=== PATIENT | male | born 1955 | race Caucasian/White ===

== ENCOUNTER 2023-08-29 08:54 | Outpatient (RCR) | payer MEDICARE, OTHER, SELFPAY | END 2023-08-29 23:59 | disposition home or self-care (01) | LOC: RPT 08:54 | PROVIDERS: ATTENDING PHYSICIAN Orthopaedic Surgery; FAMILY PHYSICIAN Family Medicine | DX: M17.12 Unilateral primary osteoarthritis, left knee (principal); Z73.6 Limitation of activities due to disability; R26.2 Difficulty in walking, not elsewhere classified; M25.562 Pain in left knee | CPT/HCPCS: 97110; 97162; 97530 ==

== ENCOUNTER 2023-09-24 10:52 | Outpatient (RCR) | payer MEDICARE, OTHER, SELFPAY | END 2023-09-24 23:59 | disposition home or self-care (01) | LOC: RPT 10:52 | PROVIDERS: ATTENDING PHYSICIAN Orthopaedic Surgery; FAMILY PHYSICIAN Family Medicine | DX: Z47.1 Aftercare following joint replacement surgery (principal); M17.12 Unilateral primary osteoarthritis, left knee; R26.2 Difficulty in walking, not elsewhere classified; M25.562 Pain in left knee; Z96.652 Presence of left artificial knee joint | CPT/HCPCS: 97110; 97140; 97530 ==

== ENCOUNTER 2023-10-24 13:08 | Outpatient (RCR) | payer MEDICARE, OTHER, SELFPAY | END 2023-10-24 23:59 | disposition home or self-care (01) | LOC: RPT 13:08 | PROVIDERS: ATTENDING PHYSICIAN Orthopaedic Surgery; FAMILY PHYSICIAN Family Medicine | DX: M17.12 Unilateral primary osteoarthritis, left knee (principal); M25.562 Pain in left knee; R26.2 Difficulty in walking, not elsewhere classified; Z73.6 Limitation of activities due to disability | CPT/HCPCS: 97018; 97110; 97112; 97140; 97166; 97530; 97535 ==

== ENCOUNTER 2023-11-15 13:14 | Outpatient (RCR) | payer MEDICARE, OTHER, SELFPAY | END 2023-11-15 23:59 | disposition home or self-care (01) | LOC: RPT 13:14 | PROVIDERS: ATTENDING PHYSICIAN Orthopaedic Surgery; FAMILY PHYSICIAN Family Medicine | DX: M17.12 Unilateral primary osteoarthritis, left knee (principal); M25.562 Pain in left knee; R26.2 Difficulty in walking, not elsewhere classified; Z73.6 Limitation of activities due to disability | CPT/HCPCS: 97018; 97110; 97112; 97140; 97530 ==

== ENCOUNTER → 2023-12-18 09:50 | Outpatient (REF) | payer MEDICARE, OTHER, SELFPAY | LOC: EMG 09:50 | PROVIDERS: ATTENDING PHYSICIAN Orthopaedic Surgery Hand Surgery; FAMILY PHYSICIAN Family Medicine | DX: R20.0 Anesthesia of skin (principal); M79.642 Pain in left hand | CPT/HCPCS: 95886; 95909 ==

== ENCOUNTER 2023-12-27 11:58 | Outpatient (RCR) | payer MEDICARE, OTHER, SELFPAY | END 2023-12-28 07:38 | disposition home or self-care (01) | LOC: RPT 11:58 | PROVIDERS: ATTENDING PHYSICIAN Orthopaedic Surgery; FAMILY PHYSICIAN Family Medicine | DX: M17.12 Unilateral primary osteoarthritis, left knee (principal); M25.562 Pain in left knee; R26.2 Difficulty in walking, not elsewhere classified; Z73.6 Limitation of activities due to disability; G56.01 Carpal tunnel syndrome, right upper limb; M65.331 Trigger finger, right middle finger | CPT/HCPCS: 97018; 97110; 97530 ==

== ENCOUNTER 2024-05-06 06:17 | Day surgery (SDC) | payer MEDICARE, OTHER, SELFPAY ==
[2024-05-06 15:05] VITALS: BMI 28.7
[2024-05-06 15:15] VITALS: BP 154/80; BMI 28.7
[2024-05-06] MEDS: TYLENOL 1000 MG PO (15:46)
[2024-05-06] MEDS: CELEBREX 200 MG PO (15:46)
[2024-05-06] MEDS: NORMOSOL-R/PLASMALYTE-A 1000 IV (15:47)
[2024-05-06 18:49] VITALS: BP 128/67; BP 154/80
[2024-05-06 19:00] VITALS: BP 123/75
[2024-05-06 19:10] VITALS: BP 132/73
[2024-05-06 19:20] VITALS: BP 141/81
== END 2024-05-06 19:42 | disposition home or self-care (01) ==
LOC: SDS 06:17
PROVIDERS: ATTENDING PHYSICIAN Orthopaedic Surgery Hand Surgery
DX: G56.02 Carpal tunnel syndrome, left upper limb (principal); M18.11 Unilateral primary osteoarthritis of first carpometacarpal joint, right hand; M65.321 Trigger finger, right index finger; M65.311 Trigger thumb, right thumb
CPT/HCPCS: 29848; 20600 ×2

== ENCOUNTER 2024-06-25 15:58 | Outpatient (RCR) | payer MEDICARE, OTHER, SELFPAY | END 2024-06-25 23:59 | disposition home or self-care (01) | LOC: RPT 15:58 | PROVIDERS: ATTENDING PHYSICIAN Physician Assistant; FAMILY PHYSICIAN Family Medicine | DX: Z96.651 Presence of right artificial knee joint (principal); Z47.1 Aftercare following joint replacement surgery (principal); R26.9 Unspecified abnormalities of gait and mobility; Z73.6 Limitation of activities due to disability | CPT/HCPCS: 97010; 97110; 97140; 97162; 97530 ==

== ENCOUNTER 2024-07-17 08:54 | Outpatient (RCR) | payer MEDICARE, OTHER, SELFPAY | END 2024-07-17 23:59 | disposition home or self-care (01) | LOC: RPT 08:54 | PROVIDERS: ATTENDING PHYSICIAN Physician Assistant; FAMILY PHYSICIAN Family Medicine | DX: Z47.1 Aftercare following joint replacement surgery (principal); Z96.651 Presence of right artificial knee joint; R26.9 Unspecified abnormalities of gait and mobility; Z73.6 Limitation of activities due to disability | CPT/HCPCS: 97110; 97530 ==

== ENCOUNTER 2024-08-14 09:12 | Outpatient (RCR) | payer MEDICARE, OTHER, SELFPAY | END 2024-08-14 11:08 | disposition home or self-care (01) | LOC: RPT 09:12 | PROVIDERS: ATTENDING PHYSICIAN Physician Assistant; FAMILY PHYSICIAN Family Medicine | DX: Z47.1 Aftercare following joint replacement surgery (principal); Z96.651 Presence of right artificial knee joint; R26.9 Unspecified abnormalities of gait and mobility; Z73.6 Limitation of activities due to disability | CPT/HCPCS: 97110; 97530 ==